=== PATIENT | female | born 1955 | race Caucasian/White ===

== ENCOUNTER 2022-06-15 09:14 | Emergency (ER) | payer MEDICARE, BC ==
[~2022-06-15] VITALS: Ht 160 cm; Wt 65.9 kg
[2022-06-15 10:44] LABS: CLARITY,URINE CLEAR (Clear); COLOR,URINE YELLOW (Yellow); GLUCOSE, URINE NEGATIVE (Neg); KETONES,URINE NEGATIVE (Neg); LEUKOCYTE ESTERASE ,URINE NEGATIVE (Neg); NITRITES, URINE NEGATIVE (Neg); OCCULT BLOOD,URINE NEGATIVE (Neg); PH,URINE 7.5 (4.8-8.0); PROTEIN,URINE NEGATIVE (Neg); UROBILINOGEN,URINE 0.2 E.U/dL (0.2-1.0)
[2022-06-15 10:46] LABS: UA COLLECTION TYPE CLN CATCH MIDSTREAM
[2022-06-15 11:03] LABS: BASOPHILS % (AUTO) 0.7 % (0-1); EOSINOPHILS # (AUTO) 0.2 X10'3 (0-0.9); EOSINOPHILS % (AUTO) 3.9 % (0-6); HEMATOCRIT 40.9 % (35.0-45.0); HEMOGLOBIN 14.2 g/dl (12.0-16.0); LYMPHOCYTES # (AUTO) 2.4 X10'3 (1.1-4.8); LYMPHOCYTES % (AUTO) 39.8 % (21-51); MEAN CORPUSCULAR HEMOGLOBIN 31.4 PG (27.0-31.0); MEAN CORPUSCULAR HGB CONC 34.6 g/dL (33.0-36.5); MEAN CORPUSCULAR VOLUME 90.6 FL (78-98); MEAN PLATELET VOLUME 8.6 FL (7.4-10.4); MONOCYTES # (AUTO) 0.7 X10'3 (0-0.9); MONOCYTES % (AUTO) 12.3 % (2-12); NEUTROPHILS # (AUTO) 2.6 X10'3 (1.8-7.7); NEUTROPHILS % (AUTO) 43.3 % (42-75); PLATELET COUNT 233 X10'3 (140-440); RED BLOOD COUNT 4.52 X10'6 (4.20-5.60); RED CELL DISTRIBUTION WIDTH 13.2 % (11.5-14.5); WHITE BLOOD COUNT 6.1 X10'3 (4.5-11.0)
[2022-06-15 11:18] LABS: ALANINE AMINOTRANSFERASE 22 U/L (12-78); ALBUMIN 3.6 G/DL (3.4-5.0); ALBUMIN/GLOBULIN RATIO 1.1 (1.1-1.5); ALKALINE PHOSPHATASE 59 IU/L (46-116); ANION GAP 10 (8-16); ASPARTATE AMINO TRANSFERASE 22 U/L (10-37); BILIRUBIN,TOTAL 1.4 MG/DL (0.1-1.0); BLOOD UREA NITROGEN 13 MG/DL (7-18); BUN/CREATININE RATIO 17.3 (6.6-38.0); CALCIUM 9.1 MG/DL (8.5-10.1); CHLORIDE 106 MMOL/L (99-107); CREATININE 0.75 MG/DL (0.40-0.90); GLUCOSE 100 MG/DL (70-104); LIPASE 64 U/L (73-393); POTASSIUM 3.8 MMOL/L (3.5-5.1); SODIUM 138 MMOL/L (135-145); TOTAL CARBON DIOXIDE 22.2 MMOL/L (24-32); eGFR 77 ML/MIN
[2022-06-15] MEDS ORDERED: morphine 4 MG/ML inj SYRINge IV ONE (12:50)
[2022-06-15] MEDS ORDERED: normal saline 1000ML IV soln IVB ONE (12:50)
[2022-06-15] MEDS ORDERED: ondansetron/PF 4mg/2ml inj IV ONE (12:50)
[2022-06-15] MEDS ORDERED: iohexol 300mg/ml 100ml inj. ONE (13:20)
--- NOTE | 2022-06-15 13:31 | NUR ---
ASSUMED CARE OF PT AT THIS TIME, PT LYING IN BED, PAIN 8/10- MEDICATED PER EMAR. PT TAKEN TO CT AT THIS TIME. VITALS WNL. PENDING EXAM RESULTS, CONT TO MONITOR.
[2022-06-15] MEDS ORDERED: ACET-3068 PO (14:08)
[2022-06-15] MEDS ORDERED: LEVO88TA2 PO (14:39)
[2022-06-15] MEDS ORDERED: LIOT5TAB10 PO (14:39)
[2022-06-15] MEDS ORDERED: ALBU8.5H17 INH (14:40)
[2022-06-15] MEDS ORDERED: METO-467 PO (14:40)
[2022-06-15] MEDS ORDERED: LEVA1.2527 NEB (14:42)
[2022-06-15] MEDS ORDERED: PROG100C11 PO (14:42)
[2022-06-15] MEDS ORDERED: OXYB10TA4 PO (14:43)
[2022-06-15] MEDS ORDERED: ESTR1TAB19 PO (14:43)
[2022-06-15] MEDS ORDERED: CHOL20004 PO (14:45)
[2022-06-15] MEDS ORDERED: FURO-150 PO (14:47)
[2022-06-15 15:16] VITALS: BP 139/68
== END 2022-06-15 15:18 | disposition home or self-care (01) ==
LOC: ER 09:15
DX: N39.0 Urinary tract infection, site not specified (principal); Z88.0 Allergy status to penicillin; Z88.5 Allergy status to narcotic agent; Z79.899 Other long term (current) drug therapy; Z79.1 Long term (current) use of non-steroidal anti-inflammatories (NSAID)
CPT/HCPCS: 36415; 74177; 80053; 81003; 83690; 85025; 96374; 96375; 99285; J2270; J2405; J3490; J7030; J7040; Q9967